=== PATIENT | female | born 1990 | race Asian ===

== ENCOUNTER → 2017-02-14 | Outpatient (CLI) | payer BC, OTHER ==
[~2017-02-14] MED LIST: IBU800 M1 PO; PERCOCET 325 MG1 TA2 PO; PRENATAL TABS1 TAB PO
== END ==
LOC: SUN.DIA 11:21
DX: O24.419 Gestational diabetes mellitus in pregnancy, unspecified control (principal); Z3A.30 30 weeks gestation of pregnancy
CPT/HCPCS: G0108

== ENCOUNTER → 2017-03-08 | Outpatient (CLI) | payer BC, OTHER | LOC: SUN.DIA 13:03 | DX: O24.419 Gestational diabetes mellitus in pregnancy, unspecified control (principal); Z3A.33 33 weeks gestation of pregnancy | CPT/HCPCS: G0108 ==

== ENCOUNTER 2017-04-21 20:58 | Outpatient (CLI) | payer BC, OTHER ==
[~2017-04-21] VITALS: Ht 160 cm; Wt 75.9 kg
[~2017-04-21 20:58] MED LIST changes: -IBU800 M1 PO; -PERCOCET 325 MG1 TA2 PO
[2017-04-21 21:32] VITALS: BP 125/72; PULSE 63; TEMP 98
== END 2017-04-21 22:39 | disposition home or self-care (01) ==
LOC: LDRO 20:58
DX: O62.9 Abnormality of forces of labor, unspecified (principal); Z3A.39 39 weeks gestation of pregnancy

== ENCOUNTER 2017-04-22 00:45 | Inpatient (IN) | payer BC, OTHER ==
[~2017-04-22] VITALS: Ht 160 cm; Wt 75.9 kg
[2017-04-22] VITALS (16 sets, daily range): BP systolic 92–124; BP diastolic 51–65; PULSE 60–82; TEMP 97.3–98.2
[2017-04-22 01:33] LABS: BASO % 0.3 % (0.0-2.0); EOS % 0.1 % (0-4.0); GRAN # 8.2 (1.4-6.5); GRAN % 74.3 % (42.2-75.2); HEMATOCRIT 40.7 % (37.0-47.0); HEMOGLOBIN 14.4 g/dl (12.5-16.0); LYMPH % 18.2 % (20.0-51.0); MEAN CELL VOLUME 84 fl (80.0-100.0); MEAN CORPUSCULAR HEMOGLOBIN 30 pg (27.0-31.0); MEAN CORPUSCULAR HGB CONC 35 g/dl (33.0-37.0); MEAN PLATELET VOLUME 11.1 fl (7.4-10.4); MONO # 0.8 (0.1-0.6); MONO % 6.8 % (1.7-9.3); PLATELET COUNT 150 K/mm3 (130-400); RED BLOOD COUNT 4.86 M/mm3 (4.10-5.30); REDCELL DISTRIBUTION WIDTH-CV 12.9 % (11.5-14.5); WHITE BLOOD COUNT 11.1 K/mm3 (4.8-10.8)
[2017-04-23 00:35] VITALS: BP 103/68; PULSE 73; TEMP 97.6
[2017-04-23 07:30] VITALS: BP 97/52; PULSE 65; TEMP 98
[2017-04-23] MEDS ORDERED: PERCOCET 325 MG1 TA2 PO (11:56)
[2017-04-23] MEDS ORDERED: IBU800 M1 PO (11:56)
== END 2017-04-23 13:10 | disposition home or self-care (01) | DRG 775 ==
LOC: LDRO 00:45 → LDR 01:06 → OB 06:00
PROVIDERS: Obstetrics & Gynecology
PROC: 10E0XZZ Delivery of Products of Conception, External Approach (ICD-10-PCS; principal; 2017-04-22)
PROC: 0HQ9XZZ Repair Perineum Skin, External Approach (ICD-10-PCS; 2017-04-22)
DX: O69.1XX0 Labor and delivery complicated by cord around neck, with compression, not applicable or unspecified (principal); O70.0 First degree perineal laceration during delivery; O24.410 Gestational diabetes mellitus in pregnancy, diet controlled; Z3A.39 39 weeks gestation of pregnancy; Z37.0 Single live birth
CPT/HCPCS: J2590; J2795; J7030; J7120